=== PATIENT | male | born 1950 | race Two or more races ===

== ENCOUNTER 2018-03-26 12:08 | Outpatient (CLI) | payer OTHER ==
[~2018-03-26 12:08] MED LIST: CIALIS5 MG; GLUCOSAMINE-CH1 EA23; LEVAQUIN750 MG; LOZARTAN; TOPROL XL50 MG
== END 2018-03-26 17:00 | disposition home or self-care (01) ==
LOC: RAD 12:08
DX: S60.551A Superficial foreign body of right hand, initial encounter (principal)

== ENCOUNTER 2018-11-18 11:04 | Outpatient (CLI) | payer OTHER | END 2018-11-18 11:15 | disposition home or self-care (01) | LOC: SONOGRAMA 11:04 | DX: R22.42 Localized swelling, mass and lump, left lower limb (principal) ==